=== PATIENT | female | born 1970 | race Two or more races ===

== ENCOUNTER → 2024-07-24 | Emergency (ER) | payer BC ==
[~2024-07-24] VITALS: Ht 167.6 cm; Wt 72.6 kg
[~2024-07-24] MED LIST: AMOX1TAB5 PO; BENZONATATE200 M1 PO; CEFTRIAXONE SODIUM 1,000 MG VIAL IV ONE; CEFTRIAXONE SODIUM 1,000 MG VIAL ONE; FAMOTIDINE/PF 20 MG/2 ML VIAL ONE; FAMOtidine 10 MG/ML (4ML VIAL) IV ONE; LEVALBUTER0.63 MG/3 IH; LEVALBUTEROL HCL 1.25 MG/3 ML SOLUTION IH ONE; MAXITROL EYE DRO5 ML OP; METHYLPREDNISOLONE SOD SUCC 40 MG VIAL IV ONE; METHYLPREDNISOLONE SOD SUCC 40 MG VIAL ONE; PEPCID AC20 MG PO; TETRACAINE HCL 20 DR/ML DROPS OP ONE; WATER FOR INJ.,BACTERIOSTATIC 30 ML VIAL IJ ONE
[2024-07-24 12:12] LABS: HEMATOCRIT 35.4 % (36.0-45.00); HEMOGLOBIN 12.1 g/dL (12.0-15.00); MEAN CELL VOLUME 93.1 fL (80.00-100.00); MEAN CORPUSCULAR HEMOGLOBIN 31.9 pg (27.00-32.0); MEAN CORPUSCULAR HGB CONC 34.2 g/dl (32.0-36.0); PLATELET COUNT 199 K/uL (150-450); RED CELL DISTRIBUTION WIDTH 12.9 % (11.5-14.5)
[2024-07-24 12:56] LABS: ALBUMIN 3.2 gm/dL (3.4-5.0); BILIRUBIN TOTAL 0.19 mg/dL (0.3-1.2); CALCIUM 9.2 mg/dL (8.5-10.1); CREATININE SERUM 0.86 mg/dL (0.55-1.02); GFR 68.51; GLOBULINA 4.3 G/DL (2.4-3.5); POTASSIUM 4.28 mEq/L (3.5-5.1); TOTAL PROTEIN 7.5 gm/dL (6.4-8.2)
[2024-07-24 14:13] LABS: URINE APPEARANCE Clear; URINE BILIRRUBIN Negative (NEGATIVE); URINE BLOOD Trace; URINE COLOR Yellow; URINE GLUCOSE Negative (NEGATIVE); URINE KETONE Negative (NEGATIVE); URINE LEUKOCYTE Moderate; URINE NITRATE Negative; URINE PROTEIN Negative (NEGATIVE); URINE UROBILINOGEN 0.2 E.U./dl
[2024-07-24 14:14] LABS: URINE BACTERIA 138.2 uL (0.0-1933); URINE EPITHELIAL CELLS 6.3 uL (0.0-38.8); URINE RBC 22.9 uL (0.0-20.8); URINE WBC 55.8 uL (0.0-23.2)
== END | disposition home or self-care (01) ==
LOC: ER 10:01
PROVIDERS: General Practice
DX: J32.9 Chronic sinusitis, unspecified (principal); R05.9 Cough, unspecified; Z20.822 Contact with and (suspected) exposure to COVID-19